=== PATIENT | female | born 1935 | race Hispanic/Latino ===

== ENCOUNTER 2017-05-10 12:00 | Inpatient (IN) | payer MEDICARE ==
[2017-05-19] MEDS ORDERED: CEFAZOLIN/Water 2 GM/20 ML SYRINGE ONE (11:23)
[2017-05-19] MEDS ORDERED: Sodium Chloride 0.9% 10 ML ONE (12:29)
[2017-05-19] MEDS ORDERED: Thrombin 5000 UNITS/5 ML VIAL ONE ×2 (12:29→15:47)
[2017-05-19] MEDS ORDERED: Bacitracin Zinc Ointment 30 gm TUBE ONE (12:29)
[2017-05-19] MEDS ORDERED: Fentanyl 100 MCG/2 ML VIAL ONE ×2 (12:59→17:14)
[2017-05-19] MEDS ORDERED: Phenylephrine HCL 10 MG/ML VIAL ONE (12:59)
[2017-05-19] MEDS ORDERED: ePHEDrine/0.9% NaCl/PF SYRINGE 50 mg/10 ml ONE (15:01)
[2017-05-19] MEDS ORDERED: PROPOFOL 200 MG/20 ML VIAL ONE (15:01)
[2017-05-19] MEDS ORDERED: Lidocaine 1% PF 5 ML VIAL ONE (15:01)
[2017-05-19] MEDS ORDERED: Ondansetron HCl/PF 4 MG/2 ML Vial ONE (15:01)
[2017-05-19] MEDS ORDERED: Glycopyrrolate 0.2 MG/ML 5 ML SYRINGE ONE (15:01)
[2017-05-19] MEDS ORDERED: Dexamethasone 20 MG/5 ML VIAL ONE (15:01)
[2017-05-19] MEDS ORDERED: PHENYLEPHRINE-NS 100 MCG/ML 10 ML SYRINGE ONE (15:01)
[2017-05-19] MEDS ORDERED: Ondansetron HCl/PF 4 MG/2 ML Vial IVP PRN (16:39)
[2017-05-19] MEDS ORDERED: Promethazine HCl 25 MG/ML VIAL SLOW IVP PRN (16:39)
[2017-05-19] MEDS ORDERED: Promethazine HCl 25 MG/ML VIAL IM PRN ×2 (16:39→16:40)
[2017-05-19] MEDS ORDERED: Mag-Al 1200 mg/1200 mg/30 ML UDCUP PO PRN (16:40)
[2017-05-19] MEDS ORDERED: Bisacodyl 10 MG SUPP PR PRN (16:40)
[2017-05-19] MEDS ORDERED: Fleet Enema 133 ML BOT PR PRN (16:40)
[2017-05-19] MEDS ORDERED: Acetaminophen 325 MG TAB PO PRN (16:40)
[2017-05-19] MEDS ORDERED: Milk Of Magnesia 30 ML UDCUP PO PRN (16:40)
[2017-05-19] MEDS ORDERED: PROVENTIL INHALER 6.7 G (200 INHALATIONS) INH PRN (16:43)
[2017-05-19] MEDS: Lisinopril 10 MG TAB PO SCH (21:26)
[2017-05-19] MEDS: Calcium Carbonate + Vit D 1 TAB PO SCH (21:27)
[2017-05-19] MEDS: CEFAZOLIN/Water 2 GM/20 ML SYRINGE SLOW IVP SCH (21:28)
[2017-05-19] MEDS: Acetaminophen/Codeine 30-300mg Tablet PO PRN (21:28)
[2017-05-19] MEDS: tiZANidine HCl 4 MG TAB PO PRN (21:28)
[2017-05-20] MEDS: Sodium Chloride 0.9% 1,000 ML IV SCH ×3 (01:05→21:44)
[2017-05-20 01:16] VITALS: BMI 33.3
[2017-05-20] MEDS: tiZANidine HCl 4 MG TAB PO PRN ×2 (03:16→09:03)
[2017-05-20] MEDS: Acetaminophen/Codeine 30-300mg Tablet PO PRN ×3 (03:17→18:36)
[2017-05-20] MEDS: CEFAZOLIN/Water 2 GM/20 ML SYRINGE SLOW IVP SCH (03:18)
[2017-05-20] MEDS: Levothyroxine Sodium 25 MCG TAB PO SCH (06:11)
[2017-05-20] MEDS: Lisinopril 10 MG TAB PO SCH ×2 (08:49→21:44)
[2017-05-20] MEDS: Calcium Carbonate + Vit D 1 TAB PO SCH ×2 (08:51→21:40)
[2017-05-20] MEDS: Ferrous Sulfate 325 MG TAB PO SCH (08:53)
--- NOTE | 2017-05-20 17:25 | OP ---
DATE OF SURGERY: 05/19/2017 SURGEON: Porfirio Cesar M.D. MAT MACHINE TENDER: Bry Escobedo PA-C OR: 12 PREPROCEDURE DIAGNOSES: Cervical stenosis, myelopathy with circumferential stenosis. POSTPROCEDURE DIAGNOSES: Cervical stenosis, myelopathy with circumferential stenosis. PROCEDURES PERFORMED: 1. C5, C6, C7 laminectomies, partial facetectomies and foraminotomies. 2. C4, C5, C6, C7 posterior lateral screw roberto carlos fixation. 3. Posterolateral fusion C4, C5, C6, C7 with local bone autograft obtained from same incision and al lograft. DESCRIPTION OF PROCEDURE: After informed consent was obtained from the patient, the patient brought to OR 12. Proper patient pause and identification was carried out. She was placed under excellent g eneral endotracheal anesthesia and positioned prone on the operating room table following the fixatio n of the Jimenez brandt. We were careful to protect his cervical spine in neutral position and we t hen draw a linear ghassan dorsally over C4, C5, C6, and C7. This region was sterilely cleansed, prepare d, and draped. Proper patient pause and identification was carried out. The wound was then opened w ith a combination of sharp, monopolar and blunt dissection. We exposed C4, C5, C6, and C7 spinous pr ocesses, lamina and facet complexes. We were careful to protect the C7-T1 and C3-C4 facet complexes. We then turned our attention to placement of screw roberto carlos fixation C4, C5, C6, and C7. Following loca lization film, this was done uneventfully and final tightening with the roberto carlos then occurred. We then t urned our attention to the laminectomy of C4, C5, C6, and the mid portion of C7. We decompressed the spinal cord and nerves in their entirety. We were satisfied with our decompression. We then turned our attention to copious irrigation, maximizing hemostasis throughout the case and decortication ove r the posterolateral regions, arthrodesis with local bone autograft obtained from same incision and a llograft at C4, C5, C6, and C7. This was placed in the posterolateral regions for arthrodesis, copio us irrigation again had occurred. The wound was then closed in anatomic layers following the sprinkl ing of vancomycin powder. The patient then emerged from anesthesia.
--- NOTE | 2017-05-21 00:06 | PRG ---
DATE OF SERVICE: 05/20/2017 Bry Escobedo PA-C, dictating for Porfirio Cesar MD Ms. Rivera is doing very well postoperatively. She has good improvement in bilateral upper extremity pain and weakness. She states she feels as though her hands are functioning better postoperatively. She does have some incisional neck pain, but otherwise is doing well. Her pain is controlled with oral medications and she is tolerating a solid diet. She remains at neurologic baseline. She will w ork with therapies and a rehab consult has been placed to help with patient's improvement of gait. T he patient is doing well postoperatively. She is stable for discharge at any time once arrangements have been made for rehabilitation.
[2017-05-21] MEDS: Acetaminophen/Codeine 30-300mg Tablet PO PRN ×2 (01:45→12:18)
[2017-05-21] MEDS: Levothyroxine Sodium 25 MCG TAB PO SCH (06:26)
[2017-05-21] MEDS: Sodium Chloride 0.9% 1,000 ML IV SCH ×2 (09:01→23:34)
[2017-05-21] MEDS: Ferrous Sulfate 325 MG TAB PO SCH (09:08)
[2017-05-21] MEDS: Calcium Carbonate + Vit D 1 TAB PO SCH ×2 (09:08→21:25)
[2017-05-21] MEDS: Lisinopril 10 MG TAB PO SCH ×2 (09:10→21:27)
--- NOTE | 2017-05-21 11:25 | PRG ---
DATE OF SERVICE: 05/21/2017 SUBJECTIVE: Ms. Rivera is an 81-year-old woman who is now on postop day 2 following posterior cervic al laminectomy and fusion with Dr. Cesar. This morning, she is doing well. She has actually alread y ambulated with physical therapy and appears to be tolerating that rather well. Her incision is dra winkler some, so I went ahead and changed her dressing. There is no obvious drainage. The wound is dr salamanca, well approximated with hernandez. There is very, very mild erythema around these, which is typical after staple placement. Her neck and shoulder pain is minor, intolerable according to the patient. Overall, they are happy with the progress she has made so far and looks forward to disposition, which looks at this time to be to a snf facility.
[2017-05-21] MEDS: HYDROcodone/Acetaminophen 7.5/325 mg Tablet PO PRN (21:25)
[2017-05-22] MEDS: Levothyroxine Sodium 25 MCG TAB PO SCH (05:48)
[2017-05-22] MEDS: HYDROcodone/Acetaminophen 7.5/325 mg Tablet PO PRN ×4 (05:52→21:34)
--- NOTE | 2017-05-22 07:16 | PRG ---
DATE OF SERVICE: 05/22/2017 Ms. Rivera is now postop day 2 following posterior cervical laminectomy and fusion. Her pain level i s still tolerable. She has done well. She has actually been up on the bedside commode 4 times since the last time I spoke with her and has been transferring herself well with a little assistance from her daughter. She has also started to have bowel movements, which is a very positive sign. We will continue to await placement and disposition to either half-way or rehabilitation, which likely will take place until Tuesday or Tuesday at the soonest. We will continue to follow along and I enco uraged aggressive physical therapy and occupational therapy during her stay here.
[2017-05-22] MEDS: Lisinopril 10 MG TAB PO SCH ×2 (09:09→22:09)
[2017-05-22] MEDS: Ferrous Sulfate 325 MG TAB PO SCH (09:10)
[2017-05-22] MEDS: Calcium Carbonate + Vit D 1 TAB PO SCH ×2 (09:11→21:35)
[2017-05-22] MEDS: Sodium Chloride 0.9% 1,000 ML IV SCH (10:42)
--- NOTE | 2017-05-22 11:30 | PRG ---
DATE OF SERVICE: 05/22/2017 SUBJECTIVE: Ms. Rivera continues to recover for cervical decompression and fusion for myelopathy. S he is progressing as I would anticipate given her underlying condition and surgical procedure. We wi ll continue to treat her with physical therapy and occupational therapy as we await final disposition , which will likely be inpatient rehab versus a nursing home facility.
[2017-05-23] MEDS: Sodium Chloride 0.9% 1,000 ML IV SCH ×2 (01:49→15:15)
[2017-05-23] MEDS: Levothyroxine Sodium 25 MCG TAB PO SCH (06:26)
[2017-05-23] MEDS: Lisinopril 10 MG TAB PO SCH ×3 (09:27→21:55)
[2017-05-23] MEDS: Calcium Carbonate + Vit D 1 TAB PO SCH ×2 (09:31→20:44)
[2017-05-23] MEDS: Ferrous Sulfate 325 MG TAB PO SCH (09:31)
[2017-05-23] MEDS: HYDROcodone/Acetaminophen 7.5/325 mg Tablet PO PRN ×3 (09:35→20:44)
--- NOTE | 2017-05-23 13:01 | PRG ---
DATE OF SERVICE: 05/23/2017 Bry Escobedo PA-C dictating for Porfirio Cesar M.D. Ms. Rivera is now postoperative day #4, having undergone posterior cervical laminectomies and fusion. The patient states she is doing well postoperatively. She has been ambulating with physical therap y, tolerating a solid diet, voiding, and pain is controlled with oral medications. The patient remai ns at neurologic baseline with good strength in the bilateral upper extremities and lower extremities . Her incision is covered, clean, dry, and intact, closed with hernandez without drainage or dehiscenc e. At this time she is stable for discharge when arrangements have been made for usp isabell gary inpatient rehabilitation versus home health, occupational and physical therapy. We will touch jessi vidal with case management later today to check on the status of this. Please call with any changes in the patient's neurologic status.
[2017-05-24] MEDS: Sodium Chloride 0.9% 1,000 ML IV SCH ×2 (04:52→18:48)
[2017-05-24] MEDS: HYDROcodone/Acetaminophen 7.5/325 mg Tablet PO PRN ×2 (05:14→18:05)
[2017-05-24] MEDS: Levothyroxine Sodium 25 MCG TAB PO SCH (05:15)
--- NOTE | 2017-05-24 08:20 | PRG ---
DATE OF SERVICE: 05/24/2017 Ms. Rivera is now postoperative day #5, having undergone a posterior cervical decompression and fusio n. The patient states daily she is getting stronger and feeling better. She has been occasionally w ithout her collar, but states she is actually more comfortable when wearing it. She has good strengt h in the bilateral upper extremities and bilateral lower extremities and has been walking with physic al therapy. Her incision was examined yesterday, it was clean, dry, and intact without any signs of dehiscence or drainage. At this time, the main issue is disposition. Case management is working on disposition and hope it is for inpatient rehab so that we can maximize the patient's improvement in f unctional status, especially with walking. She is stable for discharge at any time once disposition services have been arranged. Please call with any changes in the patient's neurologic status.
[2017-05-24] MEDS: Calcium Carbonate + Vit D 1 TAB PO SCH ×2 (09:09→20:50)
[2017-05-24] MEDS: Ferrous Sulfate 325 MG TAB PO SCH (09:09)
[2017-05-24] MEDS: Lisinopril 10 MG TAB PO SCH ×2 (09:12→20:51)
[2017-05-24] MEDS: traMADol HCl 50 MG TAB PO PRN (20:54)
[2017-05-25] MEDS: Levothyroxine Sodium 25 MCG TAB PO SCH (05:06)
[2017-05-25] MEDS: Sodium Chloride 0.9% 1,000 ML IV SCH ×2 (05:56→20:34)
[2017-05-25] MEDS: Ferrous Sulfate 325 MG TAB PO SCH (09:42)
[2017-05-25] MEDS: Calcium Carbonate + Vit D 1 TAB PO SCH ×2 (09:42→21:25)
[2017-05-25] MEDS: traMADol HCl 50 MG TAB PO PRN ×3 (09:43→21:26)
--- NOTE | 2017-05-25 10:34 | PRG ---
DATE OF SERVICE: 05/25/2017 SUBJECTIVE: Ms. Rivera is now postoperative day #06, having undergone a posterior cervical laminecto my and fusion. She states, again today she is feeling better. She has been working with therapies a nd states she feels as though her left knee is buckling and she has been wearing a brace that she bro ught from home, which has helped with her walking significantly. She is using a walker. She is tole rating a solid diet. Her pain is controlled with oral medications and she is using a bedside commode and voiding. She remained at neurologic baseline with some bilateral upper extremity weakness, this appears to be improved from her preop exam. Her incision is uncovered today and there is a scant am ount of drainage in the superior aspect of the incision that is clean, dry, and intact without any de hiscence or active drainage. It is closed with hernandez. She is wearing a well-fitting [place] collar. At this time, we are still waiting on disposition planning. Case management has been working with the patient's insurance to help to approve inpatient rehab at any time. Again, the patient is stabl e for discharge from a neurosurgical standpoint and we will wait services to be arranged. Please aleena l with any changes in the patient's neurologic status.
[2017-05-25] MEDS: Lisinopril 10 MG TAB PO SCH ×2 (15:35→21:25)
[2017-05-26] MEDS: HYDROcodone/Acetaminophen 7.5/325 mg Tablet PO PRN ×3 (00:56→18:04)
[2017-05-26] MEDS: Levothyroxine Sodium 25 MCG TAB PO SCH (05:29)
[2017-05-26] MEDS: Calcium Carbonate + Vit D 1 TAB PO SCH ×2 (09:28→21:29)
[2017-05-26] MEDS: Ferrous Sulfate 325 MG TAB PO SCH (09:30)
[2017-05-26] MEDS: Lisinopril 10 MG TAB PO SCH ×2 (09:33→21:28)
[2017-05-26] MEDS: Sodium Chloride 0.9% 1,000 ML IV SCH ×2 (11:03→21:32)
--- NOTE | 2017-05-26 13:20 | PRG ---
This is Bry Escobedo PA-C, dictating for Dr. Porfirio Cesar. DATE OF SERVICE: 05/26/2017 SUBJECTIVE: Ms. Rivera is now postoperative day #7, having undergone a posterior cervical laminectom y and fusion. She continues to improve daily. She has been working with therapy. She continues wit h good strength in the bilateral upper extremities and lower extremities. She has been walking with a walker with PT. She is ambulating and using bedside commode. The main issue now is disposition. Apparently, the patient's insurance is still pending approval to inpatient rehabilitation. We have c ontacted the case management and are hoping for an answer later today. She remained stable for disch arge from a neurosurgical standpoint and we will continue to follow until arrangements have been made for discharge.
[2017-05-26] MEDS: traMADol HCl 50 MG TAB PO PRN (21:29)
[2017-05-27] MEDS: Levothyroxine Sodium 25 MCG TAB PO SCH (05:31)
[2017-05-27] MEDS: HYDROcodone/Acetaminophen 7.5/325 mg Tablet PO PRN ×2 (05:53→15:31)
[2017-05-27] MEDS: Calcium Carbonate + Vit D 1 TAB PO SCH ×2 (10:04→20:20)
[2017-05-27] MEDS: Ferrous Sulfate 325 MG TAB PO SCH (10:04)
[2017-05-27] MEDS: Sodium Chloride 0.9% 1,000 ML IV SCH (10:19)
--- NOTE | 2017-05-27 13:25 | PRG ---
This is Bry Escobedo PA-C, dictating for Dr. Porfirio Cesar. DATE OF SERVICE: 05/27/2017 SUBJECTIVE: Ms. Rivera is now postoperative day #9, having undergone a decompressive laminectomy and cervical fusion. Again, we are still waiting on disposition. The patient states every day she feel s stronger, although she does complain of some left knee weakness that has been in her left knee. Th e weakness has been stable over the past several months. She has been wearing a brace, has been work ing with PT and has been using a walker. She has good strength in the bilateral upper and bilateral lower extremities with perhaps some continued mild hand intrinsic weakness. Her incision is clean, d ry, and intact and she is wearing a well-fitting [place] collar. We will continue to hope for disposit ion services to be arranged today and has been in close contact with the case management as well as t charge nurse. Her family was updated at bedside as well. She can remain stable and is ready for discharge at any time.
[2017-05-27] MEDS: Lisinopril 10 MG TAB PO SCH ×2 (14:40→20:20)
[2017-05-28] MEDS: Sodium Chloride 0.9% 1,000 ML IV SCH ×3 (02:46→20:10)
[2017-05-28] MEDS: Levothyroxine Sodium 25 MCG TAB PO SCH (06:03)
--- NOTE | 2017-05-28 08:06 | PRG ---
DATE OF SERVICE: 05/28/2017 SUBJECTIVE: I saw Ms. Rivera in her hospital room this morning. She is awaiting transfer to a [facility]. We are going to make that transfer today. We will make sure all the forms are filled out and that she is ready for discharge when transport comes for her.
[2017-05-28] MEDS: HYDROcodone/Acetaminophen 7.5/325 mg Tablet PO PRN (10:37)
[2017-05-28] MEDS: Ferrous Sulfate 325 MG TAB PO SCH (10:38)
[2017-05-28] MEDS: Calcium Carbonate + Vit D 1 TAB PO SCH ×2 (10:38→21:50)
[2017-05-28] MEDS: Lisinopril 10 MG TAB PO SCH ×2 (12:10→21:49)
[2017-05-29] MEDS: HYDROcodone/Acetaminophen 7.5/325 mg Tablet PO PRN ×2 (00:55→08:22)
[2017-05-29] MEDS: Levothyroxine Sodium 25 MCG TAB PO SCH (06:44)
[2017-05-29] MEDS: Ferrous Sulfate 325 MG TAB PO SCH (08:23)
[2017-05-29] MEDS: Calcium Carbonate + Vit D 1 TAB PO SCH ×2 (08:23→20:48)
[2017-05-29] MEDS: Lisinopril 10 MG TAB PO SCH ×2 (08:49→20:48)
--- NOTE | 2017-05-29 11:28 | PRG ---
DATE OF SERVICE: 05/29/2017 SUBJECTIVE: Ms. Rivera still in the hospital. She did not transfer to [facility] yester day. She is up as I entered the room and she is eating her breakfast. She is wearing her collar and watching television. She is doing well, has no new deficits. We are available for call today etta warren the need arise and Dr. Cesar's team will be back tomorrow. I anticipate transfer tomorrow.
[2017-05-29] MEDS: Sodium Chloride 0.9% 1,000 ML IV SCH (15:11)
[2017-05-29] MEDS ORDERED: HYDROcodone/Acetaminophen 7.5/325 mg Tablet PO PRN (16:17)
--- NOTE | 2017-05-29 16:44 | PRG ---
DATE OF SERVICE: 05/29/2017 HISTORY: Ms. Rivera is an 81-year-old female who I saw in her room this morning. She is status post ACDF for cervical myelopathy. She has been accepted to [facility]; however, we are s till awaiting on insurance approval before she can be transported. This morning on physical exam, melody carrillo continues to have paresthesias in the upper extremity; however, she said that her hands feel much m ore normal than they were preoperatively. I explained that it will take time for sensation to resolv e; however, this surgery is mainly to prevent more neurologic dysfunction from continuing. We will w abad for her approval for her insurance today and if she is able to be transported to [facility], then she can be discharged. The should be signed on the chart for transport. If there are any furt her questions, please feel free to contact Neurosurgery.
[2017-05-30] MEDS: Sodium Chloride 0.9% 1,000 ML IV SCH ×2 (05:50→19:52)
[2017-05-30] MEDS: Levothyroxine Sodium 25 MCG TAB PO SCH (06:46)
[2017-05-30] MEDS: Ferrous Sulfate 325 MG TAB PO SCH (08:10)
[2017-05-30] MEDS: Lisinopril 10 MG TAB PO SCH ×2 (08:10→21:44)
[2017-05-30] MEDS: Calcium Carbonate + Vit D 1 TAB PO SCH ×2 (08:11→21:43)
--- NOTE | 2017-05-30 13:46 | PRG ---
DATE OF SERVICE: 05/30/2017 Ms. Rivera is now postoperative day #11, having undergone posterior cervical laminectomy and fusion. In regards to her surgery, the patient states she is doing very well. She states that she is ready to get out of the hospital and social work program coordinator working to arrange for discharge planning. Apparently , the patient has been accepted into [facility], but she was unable to get th ere over the weekend. She remained at neurologic baseline with good strength in the bilateral upper and bilateral lower extremities with mild hand intrinsic weakness bilaterally. She has been working with therapies, but states that she is tired of being in the hospital bed and would like to leave as soon as possible. We will check back with a case management and hope for her discharge later today.
[2017-05-31] MEDS: Levothyroxine Sodium 25 MCG TAB PO SCH (06:41)
[2017-05-31] MEDS: Ferrous Sulfate 325 MG TAB PO SCH (08:48)
[2017-05-31] MEDS: Lisinopril 10 MG TAB PO SCH (08:49)
[2017-05-31] MEDS: Sodium Chloride 0.9% 1,000 ML IV SCH (08:49)
[2017-05-31] MEDS: Calcium Carbonate + Vit D 1 TAB PO SCH (08:49)
[2017-05-31 08:54] VITALS: TEMP 97.9
[2017-05-31 13:07] VITALS: BP 106/65
--- NOTE | 2017-06-01 13:58 | DIS ---
DATE OF ADMISSION: 05/19/2017 DATE OF DISCHARGE: 05/31/2017 Bry Escobedo PA-C, dictating for Dr. Porfirio Cesar. DISCHARGE DIAGNOSES: 1. Cervical stenosis. 2. Cervical myelopathy. HOSPITAL COURSE: Ms. Rivera was admitted on 05/19/2017 to undergo a C5, C6, C7 laminectomies, partia l facetectomy with foraminotomies with C4-C7 posterior cervical fusion. Patient's surgery was withou t complication and she was allowed to recover for several overnights stay in the hospital. Due to in surance and financial reasons, the patient was admitted for several overnight stays and eventually we nt home with home health. At the time of discharge, the patient was improving in regards to her walk ing and hand function. Enough opportunity was given to the patient and her daughter to discuss quest ions and concerns at that time and was given appropriate outpatient followup appointments and patient education. Again, at the time of discharge, patient was pleased with her outcome postoperatively.
== END 2017-05-31 17:40 | DRG 473 ==
LOC: SURG A 05-19 10:17 → SURG B 05-19 17:15
PROVIDERS: ADMIT Surgery; ATTEND Surgery
PROC: 0RG20AJ Fusion of 2 or more Cervical Vertebral Joints with Interbody Fusion Device, Posterior Approach, Anterior Column, Open Approach (ICD-10-PCS; principal; 2017-05-19)
DX: M47.12 Other spondylosis with myelopathy, cervical region (principal); E03.9 Hypothyroidism, unspecified; M48.02 Spinal stenosis, cervical region; E78.5 Hyperlipidemia, unspecified; I10 Essential (primary) hypertension
CPT/HCPCS: 76001; A4216; C1713; G8978-GP-CM; G8979-GP-CL; G8987-GO-CL; G8988-GO-CJ; J1100; J2001; J2370; J2405; J2550; J2704; J3010; J3370; J3490

== ENCOUNTER 2017-05-10 13:07 | Outpatient (CLI) | payer MEDICARE ==
[2017-05-10 15:03] LABS: Hemoglobin 14.2 g/dL (12.0-16.0); Mean Corpuscular HGB CONC 32.6 g/dL (32.0-36.0); Mean Corpuscular Hemoglobin 31.7 pg (27.0-31.0); Mean Corpuscular Volume 97.1 fl (81.0-99.0); Mean Platelet Volume 7.7 fL (7.4-10.4); Platelet Count 302 thou/uL (130-400); RBC Distribution Width 12.3 % (11.5-14.5); Red Blood Cell (RBC) Count 4.47 mill/uL (4.20-5.40); White Blood Cell (WBC) Count 7.5 thou/uL (4.8-10.8)
[2017-05-10 15:08] LABS: PTT 28.4 SEC (22.9-36.1); Prothrombin Time 13.3 SEC (12.0-14.7)
[2017-05-10 15:21] LABS: Anion Gap 12 mmol/L (10-20); BUN (Urea Nitrogen) 10 mg/dL (9.8-20.1); Calc. Creatinine Clearance 0 mL/min (70-130); Calcium 9.9 mg/dL (7.8-10.44); Carbon Dioxide 30 mmol/L (23-31); Chloride 105 mmol/L (98-107); Estimated GFR-MDRD 64; Glucose 97 mg/dL (83-110); Potassium 4.8 mmol/L (3.5-5.1); Sodium 142 mmol/L (136-145)
--- NOTE | 2017-05-10 21:00 | EKG ---
Test Reason : Blood Pressure : / mmHG Vent. Rate : 061 BPM Atrial Rate : 061 BPM P-R Int : 156 ms QRS Dur : 082 ms QT Int : 434 ms P-R-T Axes : 034 010 045 degrees QTc Int : 436 ms Normal sinus rhythm Possible Anterior infarct , age undetermined (Doubtful) Abnormal ECG When compared with ECG of 03-APR-2003 19:34, No significant change was found Confirmed by JALEN PATHAK ([id number]) on 05/10/2017 8:59:45 PM Referred By: SUE Confirmed By:JALEN PATHAK
== END 2017-05-10 13:08 | disposition home or self-care (01) ==
LOC: LABBT 13:07
PROVIDERS: ATTEND Surgery
DX: Z01.810 Encounter for preprocedural cardiovascular examination (principal); Z01.812 Encounter for preprocedural laboratory examination; M47.12 Other spondylosis with myelopathy, cervical region
CPT/HCPCS: 80048; 85027; 85610; 85730; 93005; 93010

== ENCOUNTER 2017-07-22 09:27 | Outpatient (CLI) | payer MEDICARE ==
--- NOTE | 2017-07-22 11:38 | RAD ---
CERVICAL SPINE FOUR VIEWS: HISTORY: Neck pain. Prior surgery. FINDINGS: Straightening of the normal lordotic curvature is apparent on the frontal view. Posterior fixation h ardware is in place at the C3, C4, C5, and C6 levels. Vertebral body height and alignment are mainta ined. Osseous structures are demineralized. Prominent osteophytosis throughout the vertebral bodies and facets. No perihardware lucency. IMPRESSION: 1. Posterior operative fixation of the cervical spine without evidence of hardware complication. 2. Cervical spondylosis. 3. Osteoporosis. POS: MAGDALENA
== END 2017-07-22 09:28 | disposition home or self-care (01) ==
LOC: TBSIIMAG 09:27
PROVIDERS: ATTEND Surgery
DX: M47.12 Other spondylosis with myelopathy, cervical region (principal); M81.0 Age-related osteoporosis without current pathological fracture; Z98.890 Other specified postprocedural states
CPT/HCPCS: 72040